=== PATIENT | female | born 1970 | race Caucasian/White ===

== ENCOUNTER → 2016-09-02 | Outpatient (REF) ==
--- NOTE | 2016-09-02 11:21 | REP ---
CERVICAL SPINE: AP and lateral views of the cervical spine performed. There is no compression fracture or malalignment. There is no prevertebral soft tissue swelling. Disc spaces are relatively well preserved. There is mild spurring of the C5 vertebral body both anteriorly and posteriorly and mild posterior spurring at C6 superior aspect. There are bilateral cervical ribs, larger on the left than on the right. IMPRESSION: Mild spurring C5 and C6. Bilateral cervical ribs larger on the left than on the right. Signed by Nathanael Vargas MD 09/02/2016 12:16 P
== END ==
LOC: M SMT 10:28
PROVIDERS: ATTEND Internal Medicine
DX: Z02.71 Encounter for disability determination (principal)